=== PATIENT | female | born 1960 | race Two or more races ===

== ENCOUNTER 2025-06-20 09:11 | Day surgery (SDC) | payer MEDICARE ==
[2025-06-15 11:01] LABS: Hematocrit 36.3 % (36.0-46.0); Hemoglobin 12.3 g/dL (12.2-16.2); Mean Corpuscular Hemoglobin 29.5 pg (28.0-32.0); Mean Corpuscular Volume 86.8 fL (80.0-100.0); Nucleated Red Blood Cells % 0.0 %
[2025-06-15 11:20] LABS: INR 1.02 (0.9-1.15); Partial Thromboplastin Time 25.5 SEC (24.5-34.5); Prothrombin Time 10.8 sec (9.3-11.8)
[2025-06-15 11:38] LABS: Alanine Aminotransferase 14 U/L (7-40); Albumin 4.4 g/dL (3.2-4.8); Alkaline Phosphatase 74 U/L (46-116); Anion Gap 9 (5-15); BUN/Creatinine Ratio 9.3 (10.0-20.0); Bilirubin, Total 0.7 mg/dL (0.2-1.0); Blood Urea Nitrogen 9 mg/dL (9-23); Carbon Dioxide 27 mmol/L (20-31); Chloride 107 mmol/L (98-107); Glucose 95 mg/dL (74-106); Potassium 3.7 mmol/L (3.5-5.1); Sodium 143 mmol/L (136-145); Total Protein 7.0 g/dL (5.7-8.2)
[2025-06-15 11:49] LABS: Calcium 9.2 mg/dL (8.7-10.4); Urine Protein, UAD Negative (Negative)
[~2025-06-20] VITALS: Ht 165.1 cm; Wt 99.8 kg
[~2025-06-20 09:11] MED LIST: ASPI81CH59 PO; ATOR-507 PO; GABA-339 PO; LOSA-534 PO; SEMA2INJ3 SC
[2025-06-20] MEDS ORDERED: PHENYLEPHRINE HCL 10 MG/ML VL IV ONE (09:12)
[2025-06-20] MEDS ORDERED: ROCURONIUM 10MG/ML 10ML VIAL IV ONE (09:56)
[2025-06-20] MEDS ORDERED: KETAMINE 50mg/ML 1ml syringe ONE (09:56)
[2025-06-20] MEDS ORDERED: GLYCOPYRROLATE 0.2 MG/ML 1ML VIAL ONE (09:56)
[2025-06-20] MEDS ORDERED: SUGAMMADEX 200mg/2ml Vial (100MG/ML) IV ONE (09:56)
[2025-06-20] MEDS ORDERED: ONDANSETRON HCL 4 MG/2 ML VIAL ONE (09:56)
[2025-06-20] MEDS ORDERED: KETOROLAC TROMETH 30 MG/ML 1ML VIAL ONE (09:56)
[2025-06-20] MEDS ORDERED: PROPOFOL 10 MG/ML 20 ML IV ONE (09:56)
[2025-06-20] MEDS ORDERED: LIDOCAINE 2% (LOCAL ANESTH.) PF 5ml SDV ONE (09:56)
[2025-06-20] MEDS ORDERED: LIDOCAINE HCL 2% TOP JELLY 5ML TOP ONE (09:56)
[2025-06-20] MEDS ORDERED: fentaNYL CITRATE 100 MCG/2 ML VL ONE (09:57)
[2025-06-20] MEDS: ACETAMINOPHEN IV 1000 MG/100ML (10MG/ML) IV ONE (11:45)
[2025-06-20] MEDS: GABAPENTIN 300 MG CAP PO ONE (11:45)
[2025-06-20] MEDS: CELECOXIB 100 MG CAP PO ONE (11:45)
[2025-06-20] MEDS: ceFAZolin 2 GM/D5W50ml 50 ML IV ONE (12:00)
[2025-06-20] MEDS: BUPIVACAINE 0.5% MPF INJ 30ML SDV IJ ONE (12:16)
[2025-06-20 13:38] VITALS: PULSE 93; RESP 12; TEMP 97.1; O2SAT 100
[2025-06-20] MEDS ORDERED: ONDANSETRON HCL 4 MG/2 ML VIAL IV PRN (13:45)
[2025-06-20] MEDS ORDERED: FLUMAZENIL 0.1 MG/ML INJ 10ML MDV IV PRN (13:45)
[2025-06-20] MEDS ORDERED: fentaNYL CITRATE 100 MCG/2 ML VL IV PRN (13:45)
[2025-06-20] MEDS ORDERED: NALOXONE HCL 0.4 MG/ML VIAL IV PRN (13:45)
[2025-06-20] MEDS ORDERED: hydrALAZINE HCL 20 MG/ML VL IV PRN (13:45)
[2025-06-20] MEDS ORDERED: HYDROmorphone HCL 2 MG/ML VL/or syr IV PRN (13:45)
[2025-06-20] MEDS: ONDANSETRON HCL 4 MG/2 ML VIAL ONE (14:31)
--- NOTE | 2025-06-20 14:39 | DVHOP2 ---
Operative Report - 2 Report Details Date: 06/20/25 Preop Diagnosis: 1. Left foot midfoot arthritis 2. Left foot achilles tendonitis 3. Left foot calcaneal bone spur 4. Left foot haglunds deformity Postop Diagnosis: Left foot midfoot arthritis and calcaneal bone spur with achilles tendonitis Surgeon: Yasmin Correia MD Anesthesiologist: See anesthesia Anesthesia: General Consent: The patient was informed of the risks and benefits of the procedure. These include but are not limited to complications of anesthesia, postoperative infection, incomplete relief of symptoms, recurrence of symptoms, damage to blood vessels, nerves and tendons, deep venous thrombosis, pulmonary embolism and possible need for repeat surgery in the future. Complications: None Estimated Blood Loss: Minimal Fluids: See anesthesia Findings: Consistent with diagnosis Indications for Surgery: Worsening foot pain Name of Procedure Performed 1. Left foot midfoot fusion (93609) 2. Left foot calcaneal bone spur exicsion (00631) 3. Left achilles debridement (72520) Procedure Details Procedure Details: PRE-PROCEDURE INFORMATION: In the pre-op holding area, the extremity to be operated on was clearly marked and the patient verified correct laterality of the marking. The patient was transferred to the OR table and placed in a supine position. A timeout was performed in which identification of the correct patient, procedure, location, and materials was done. The left foot and leg were prepped and draped in normal sterile fashion. DESCRIPTION OF PROCEDURE: Attention was directed to the left second metatarsal cuneiform joint where an incision was made on the dorsal aspect of the foot just over the second MC joint. The incision was deepened through blunt and sharp dissection. Care was taken throughout dissection to avoid damage to ne urovascular structures including the deep peroneal nerve and dorsalis pedis artery as well as the extensor tendons. This incision was carried to the level of the second metatarsal cuneiform joint where the joint capsule was incised for inspection of the joint. There was notable degenerative changes of the articular cartilage of the joint. The periosteum of the second metatarsal base and medial cuneiform were reflected and utilizing a joint retractor, the joint was distracted and any remaining cartilage was removed using sharp instrumentation. The cartilage was removed to the level of subchondral bone on both sides of the joint. Utilizing a Arthrex staple, the staple was placed over the fusion site and adequate compression of the second metatarsal cuneiform joint was obtained. Proper placement of hardware as well as compression of the joint was verified on intraoperative fluoroscopy. Attention was directed to the left posterior heel where a curvilinear incision was made over the posterior heel. Care was taken throughout dissection to avoid damage to neurovascular or tendinous structures. This incision was designed in a manner that, as the incision was deepened to the level of the Achilles, there were 2 flaps that were able to be opened and sutured down so as to be able to gain excellent exposure to the Achilles tendon. The peritenon was incised to be able to reveal the tendon, which appeared to have microtearing and fibrosis. All devitalized tissue and fibrosis was debrided off of the Achilles tendon. The Achilles was then detached from the posterior heel where the large exostosis was identified. Utilizing osteotomes, bone rasps, and other instrumentation, the exostosis of the posterior calcaneus was adequately resected. The area was smoothed down with bone rasps and revealed a normal posterior calcaneus after resection of the exostosis. Next, the Achilles tendon was reattached to the p osterior calcaneus using the Arthrex SpeedBridge set consisting of bone anchors and the suture material. After the SpeedBridge set was used, the Achilles appeared to be well reattached to the posterior calcaneus and there appeared to be no immediate complications from that reattachment. All surgical wounds were irrigated copiously with saline and closed in layers with the aforementioned suture material. A dry sterile dressing was placed on the surgical extremity. The patient was placed in a CAM boot POSTOPERATIVE INFORMATION: The patient tolerated the above noted procedure and anesthesia well and was transferred to the PACU with vital signs stable, and vascular status intact with capillary refill intact to all digits. Postoperative instructions reviewed in detail with the patient with written instructions provided. Patient will return to clinic in approximately 10-14 days for first postoperative visit. Patient has the number of the clinic and was instructed to call prior to that time should any problems, questions, or concerns arise. Condition Good Disposition Home Visit Coding Podiatry Date of Service if different f: Jun 20, 2025 Billing Provider: YASMIN CORREIA DPM Podiatry Common Visit Codes: PROCEDURE ONLY YASMIN CORREIA DPM Jun 20, 2025 14:39
[2025-06-20 15:05] VITALS: BP 150/86; PULSE 79; RESP 18; O2SAT 96
== END 2025-06-20 13:38 | disposition home or self-care (01) ==
LOC: SUR 09:11
PROVIDERS: ATTEND Podiatrist
DX: M19.072 Primary osteoarthritis, left ankle and foot (principal); M77.32 Calcaneal spur, left foot; M76.62 Achilles tendinitis, left leg; M92.62 Juvenile osteochondrosis of tarsus, left ankle; E66.01 Morbid (severe) obesity due to excess calories; I10 Essential (primary) hypertension; I25.2 Old myocardial infarction; Z86.73 Personal history of transient ischemic attack (TIA), and cerebral infarction without residual deficits; Z68.36 Body mass index [BMI] 36.0-36.9, adult; Z90.710 Acquired absence of both cervix and uterus; Z96.652 Presence of left artificial knee joint; Z88.8 Allergy status to other drugs, medicaments and biological substances; Z79.82 Long term (current) use of aspirin; Z79.899 Other long term (current) drug therapy; Z79.01 Long term (current) use of anticoagulants
CPT/HCPCS: 27654; 28119; 28740; 36415; 80053; 81001; 82962; 85025; 85610; 85730; C1713; J0169; J0690; J1100; J1885; J2003; J2371; J2405; J2704; J3490; J0131